=== PATIENT | female | born 1970 | race Caucasian/White ===

== ENCOUNTER 2018-09-21 09:30 | Inpatient (IN) | payer BC ==
[~2018-09-21 09:30] MED LIST: Acetaminophen TAB* 325 MG PO ONE; Buffered Lidocaine 0.9% SYRIN* 5 ML/SYR SYRINGE INTRADERM ONE; Gabapentin CAP(*) 100 MG PO ONE; Gabapentin CAP(*) 300 MG PO ONE; Levalbuterol 0.63MG/3ML NEB* UNIT OF USE INH PRN
[2018-09-21] MEDS ORDERED: Gabapentin CAP(*) 100 MG ONE (09:55)
[2018-09-21] MEDS ORDERED: Heparin VIAL(*) 5000 UNITS/ML VIAL (FIVE THOUSAND) ONE (09:55)
[2018-09-21] MEDS ORDERED: Acetaminophen TAB* 325 MG ONE (09:55)
[2018-09-21] MEDS ORDERED: ceFAZolin 2 GM PREMIX in ORs 2 GM/50 ML BAG IVPB ONE (09:56)
[2018-09-21] MEDS ORDERED: ceFAZolin 1 GM ADVAN(*) 1 GM ADDV.VIAL IVPB ONE (09:56)
[2018-09-21] MEDS ORDERED: Bupivacaine 0.25% W/EPI* 10 ML SDV ONE ×2 (10:25→12:06)
[2018-09-21] MEDS ORDERED: fentaNYL* 50 MCG/ML 2 ML VIAL (100 MCG VIAL) ONE ×4 (10:41→13:41)
[2018-09-21] MEDS ORDERED: Midazolam* 1 MG/ML 2 ML VIAL (2 MG) ONE (10:41)
[2018-09-21] MEDS ORDERED: Famotidine IV* 10 MG/ML 2 ML (20 mg) ONE (11:34)
[2018-09-21] MEDS ORDERED: Ondansetron INJ* 2 MG/ML VIAL ONE (11:34)
[2018-09-21] MEDS ORDERED: Succinylcholine* 20 MG/ML 10 ML VIAL ONE (11:34)
[2018-09-21] MEDS ORDERED: Propofol* 10 MG/ML 20 ML BTL IV PUSH ONE (11:34)
[2018-09-21] MEDS ORDERED: Dexamethasone IV* 4 MG/ML 1 ML (4 MG) ONE (11:34)
[2018-09-21] MEDS ORDERED: Lidocaine 2% PF * 5 ML VIAL ONE (11:34)
[2018-09-21] MEDS ORDERED: Cisatracurium* 2 MG/ML MDV 5 ML ONE (11:40)
[2018-09-21] MEDS ORDERED: Hetastarch 6% in NS* 500 ML IV ONE (12:07)
[2018-09-21] MEDS ORDERED: Naloxone* 0.4 MG/ML 1 ML VIAL IV PRN (12:27)
[2018-09-21] MEDS ORDERED: diPHENhydraMINE IV* 50 MG/ML 1 ml VIAL (BENADRYL) IV PRN (12:27)
[2018-09-21] MEDS ORDERED: DiMENhydriNATE IV* 50 MG/ML VIAL IV PUSH PRN (12:27)
[2018-09-21] MEDS ORDERED: PROCHLORPERAZINE INJ 5 MG/ML 2 ML VIAL IV PRN (12:27)
[2018-09-21] MEDS ORDERED: Ondansetron INJ* 2 MG/ML VIAL IV PRN ×2 (12:27→13:03)
[2018-09-21] MEDS ORDERED: Levalbuterol 0.63MG/3ML NEB* UNIT OF USE INH PRN (12:27)
[2018-09-21] MEDS ORDERED: HYDROcodone/ACETAMIN 5-325 MG* 1 TAB PO PRN ×2 (12:27)
[2018-09-21] MEDS ORDERED: Acetaminophen TAB* 325 MG PO PRN (12:27)
[2018-09-21] MEDS ORDERED: Scopolamine 1.5 mg* PATCH TRANSDERM PRN (12:27)
[2018-09-21] MEDS ORDERED: Ketorolac INJ* 30 MG/ML 1 ML VIAL ONE (12:35)
[2018-09-21] MEDS ORDERED: Acetaminophen ADULT LIQ* 650 MG/20.3 ML UDC PO PRN (13:03)
[2018-09-21] MEDS ORDERED: HYDROmorphone INJ1* 1 MG/ML SYRINGE IV PRN (13:03)
--- NOTE | 2018-09-21 13:03 | OP ---
Operative Report - Blank - Operative Report Date of Operation: 09/21/18 Note: Brief Operative Note Preop Dx: Morbid obesity Postop Dx: same Procedure: Laparoscopic sleeve gastrectomy Anesthesia: GET Surgeon: Uziel [facility] Representative: CASSIUS Cobian PA-S Fluids: 1000 ml RL EBL: none Specimen: portion stomach Drains: none Findings: dictated
[2018-09-21] MEDS: fentaNYL* 50 MCG/ML 2 ML VIAL (100 MCG VIAL) IV PRN ×5 (13:13→13:42)
[2018-09-21] MEDS: HYDROmorphone INJ1* 1 MG/ML SYRINGE IV PRN ×5 (13:27→20:53)
[2018-09-21] MEDS ORDERED: HYDROmorphone INJ1* 1 MG/ML SYRINGE ONE (13:27)
[2018-09-21] MEDS: Ketorolac INJ* 30 MG/ML 1 ML VIAL IV PRN ×2 (15:43→23:55)
[2018-09-21] MEDS: Famotidine IV* 10 MG/ML 2 ML (20 mg) IV SLOW PU SCH (20:53)
[2018-09-21] MEDS: Heparin VIAL(*) 5000 UNITS/ML VIAL (FIVE THOUSAND) SUBCUT SCH (22:24)
[2018-09-22] MEDS: HYDROmorphone INJ1* 1 MG/ML SYRINGE IV PRN (03:37)
[2018-09-22] MEDS: Heparin VIAL(*) 5000 UNITS/ML VIAL (FIVE THOUSAND) SUBCUT SCH ×3 (06:14→22:41)
[2018-09-22] MEDS: Ketorolac INJ* 30 MG/ML 1 ML VIAL IV PRN ×3 (06:15→19:25)
[2018-09-22] MEDS: Famotidine IV* 10 MG/ML 2 ML (20 mg) IV SLOW PU SCH ×2 (08:39→22:42)
[2018-09-22] MEDS: HYDROcodone/ACET. 7.5/325 LIQ* 15 ML UDC PO PRN ×2 (10:51→17:32)
--- NOTE | 2018-09-22 11:08 | PN ---
Progress Note - Progress Note Date of Service: 09/22/18 SOAP: Subjective: She reports good pain control. No N/V. Started clears. Ambulating up to 3/4 mile per RN. Objective: Vital Signs Temp 98.2 F 09/22/18 07:27 Pulse 56 09/22/18 07:27 Resp 18 09/22/18 10:51 BP 131/62 09/22/18 07:27 Pulse Ox 100 09/22/18 07:55 Gen: NAD Abd: incisions with dressings intact; soft and min tender. Intake & Output 09/21/18 09/22/18 09/22/18 18:59 06:59 18:59 Intake Total 1500 1916 981 Output Total 600 Balance 1500 1316 981 Weight 273 lb Intake: IV Fluids 1500 1916 981 LR 1500 1916 981 Oral 0 Output: Urine 600 Assessment: POD#1 s/p LSG. Doing well. Plan: Clears. Ambulate. Home in AM.
--- NOTE | 2018-09-22 12:54 | OP ---
CC: [facility]; Deangelo Vargas MD * DATE OF OPERATION: 09/21/18 - ROOM #352 DATE OF : 72 SURGEON: Kunal Triplett MD. VOCATIONAL COUNSELOR: EDI Smith. ANESTHESIOLOGIST: Dr. Borja. ANESTHESIA: General endotracheal. PRE-OP DIAGNOSIS: Morbid obesity. POST-OP DIAGNOSIS: Morbid obesity. OPERATIVE PROCEDURE: Laparoscopic sleeve gastrectomy. ESTIMATED BLOOD LOSS: Minimal. IV FLUIDS: Crystalloid. SPECIMEN: portion of stomach DRAIN: None. COMPLICATIONS: None. COUNTS: The instrument, needle, sponge counts were correct. DESCRIPTION OF PROCEDURE: The patient was brought to the operating room and placed in table in supine. Sequential compression devices were placed on both lower extremities. General anesthesia was administered. She was positioned and padded appropriately. She was administered appropriate intravenous antibiotics. After she was sterilely prepped and draped, a time-out was performed. Local anesthetic was infiltrated into the skin and soft tissues prior to making each incision. Entry to the abdomen was through a left upper quadrant incision accommodating a 5 mm optical trocar. After accessing the peritoneal cavity, carbon dioxide was insufflated to the pressure of 15 mmHg. Under direct visualization, 12 mm bladeless trocars were placed in the supraumbilical midline in right upper quadrant. A 5 mm trocar was placed in left upper quadrant laterally. The Jeronimo retractor was placed percutaneously in the subxiphoid position and was used to elevate the left lobe of the liver. The gastric anatomy was normal. There was no dimpling or hiatal hernia noted upon inspection. The pylorus was identified and 6 cm proximal to this, the greater curvature was skeletonized using LigaSure. This continued up to the fundus completely freeing this and dividing short gastrics that were laying posteriorly. After complete mobilization of the stomach, the sleeve gastrectomy was performed over a 40-[place] bougie using the Endo YULIYA stapler with reinforced purple cartridges. The staple lines were inspected and noted to be in tact and hemostatic. The specimen was retrieved through the right upper quadrant site and then submitted to pathology. Inspection of the abdominal cavity then assured hemostasis. The liver retractor and ports removed under direct visualization and carbon dioxide was released. The incisions were closed with 4-0 Monocryl in subcuticular fashion and Steri- Strips were applied. The patient tolerated the procedure well. She was extubated and transferred to recovery in stable condition. [id number]/[facility] #: [id number] MTDCrystal
[2018-09-22] MEDS: D5W 1/2 NS KCl 20 Meq 1000 ML* 1,000 ML IV SCH ×2 (14:35→22:40)
[2018-09-23] MEDS: HYDROcodone/ACET. 7.5/325 LIQ* 15 ML UDC PO PRN ×2 (00:59→07:40)
[2018-09-23] MEDS: Heparin VIAL(*) 5000 UNITS/ML VIAL (FIVE THOUSAND) SUBCUT SCH (05:48)
[2018-09-23] MEDS: Ketorolac INJ* 30 MG/ML 1 ML VIAL IV PRN (05:53)
[2018-09-23] MEDS: D5W 1/2 NS KCl 20 Meq 1000 ML* 1,000 ML IV SCH (05:59)
[2018-09-23 07:42] VITALS: BP 110/65
[2018-09-23] MEDS: Famotidine IV* 10 MG/ML 2 ML (20 mg) IV SLOW PU SCH (08:32)
--- NOTE | 2018-09-23 10:10 | PN ---
Progress Note - Progress Note Date of Service: 09/23/18 Note: S: POD #2. Doing well. David radha clears well. Pain controlled. Ambulating. Voiding well. O: Vital Signs - 8 hr 09/23/18 09/23/18 09/23/18 03:01 04:16 07:30 Temperature 97.6 F 98.1 F Pulse Rate 55 54 Respiratory 16 18 16 Rate Blood Pressure 126/80 110/65 (mmHg) O2 Sat by Pulse 98 98 Oximetry 09/23/18 09/23/18 07:40 07:45 Temperature Pulse Rate Respiratory 18 18 Rate Blood Pressure (mmHg) O2 Sat by Pulse 98 Oximetry Intake and Output Last 24 Hours 09/21/18 09/22/18 09/23/18 09/24/18 06:59 06:59 06:59 06:59 Intake Total 3416 2538 120 Output Total 600 1950 Balance 2816 588 120 Weight 273 lb Intake: IV Fluids 3416 1608 LR 3416 1608 Oral 0 930 120 Output: Urine 600 1950 Gen: appears comfortable Heart: reg Lungs: clear Abd: lap sites w/ small amts of dried blood; a couple of steristrips were replaced after removal of tegaderm dsgs. Soft; mild incisional tenderness only. A: s/p lap sleeve gastrectomy, doing well P: home today; instructions reviewed
--- NOTE | 2018-09-23 13:03 | DS ---
CC: Dr. Deangelo Vargas * DATE OF ADMISSION: 09/21/2018. DATE OF DISCHARGE: 09/23/2018. ATTENDING SURGEON: Dr. Kunal Triplett * (EDI Smith dictating). HOSPITAL COURSE: Please refer to admission history and physical and operative note for details. The patient was taken to the operating room on 09/21/2018 and underwent laparoscopic sleeve gastrectomy with Dr. Triplett. Her postoperative course has been unremarkable with gradual improvement in pain and tolerance of bariatric clear liquids. As of the morning of discharge, she is afebrile, vital signs are stable. She is tolerating diet, bariatric clear liquids well and ambulating and voiding well (see separate progress note). IMPRESSION: Status post laparoscopic sleeve gastrectomy, doing well. PLAN: Home today. Instructions were reviewed regarding diet, wound care, and activity. Written instructions were also provided. She has a follow-up next week at the [facility]. EDI SMITH [id number]/[facility] #: [id number] MTDD
[2018-09-24] MEDS ORDERED: Scopolamine PATCH Remove* 1 NOTE MISC PATCH OFF ONE (12:28)
== END 2018-09-23 11:20 | disposition home or self-care (01) | DRG 403 ==
LOC: AA 09:30 → SSU 14:42
PROVIDERS: ADMIT Surgery; ATTEND Surgery
PROC: 0DB64Z3 Excision of Stomach, Percutaneous Endoscopic Approach, Vertical (ICD-10-PCS; principal; 2018-09-21 11:00)
DX: E66.01 Morbid (severe) obesity due to excess calories (principal); G47.33 Obstructive sleep apnea (adult) (pediatric); M17.11 Unilateral primary osteoarthritis, right knee; F32.9 Major depressive disorder, single episode, unspecified; Z98.51 Tubal ligation status; Z68.42 Body mass index [BMI] 45.0-49.9, adult; Z90.710 Acquired absence of both cervix and uterus; Z90.79 Acquired absence of other genital organ(s); Z82.49 Family history of ischemic heart disease and other diseases of the circulatory system; Z81.8 Family history of other mental and behavioral disorders; Z80.0 Family history of malignant neoplasm of digestive organs; Z72.89 Other problems related to lifestyle; Z87.891 Personal history of nicotine dependence
CPT/HCPCS: 43775; 88307; A9270-GY; J0330; J0690; J1100; J1170; J1644; J1885; J2250; J2405; J2704; J3010